=== PATIENT | female | born 1970 | race American Indian/Alaskan Native ===

== ENCOUNTER 2020-03-01 06:52 | Day surgery (SDC) | payer OTHER ==
[2020-03-01] MEDS ORDERED: SODIUM CHLORIDE 0.9% 1000 ML 1,000 ML IV SCH (07:00)
[2020-03-01] MEDS ORDERED: WATER FOR IRRIG STERILE 250 ML BOTTLE IR ONE (07:38)
[2020-03-01] MEDS ORDERED: WATER FOR IRRIG STERILE 1,000 ML BOTTLE ONE (07:39)
--- NOTE | 2020-03-01 07:58 | Anesthesia Consultation ---
Anesthesia Consult and Med Hx Date of service: 03/01/20 - Airway Anesthetic Teeth Evaluation: Good ROM Head & Neck: Adequate Mental/Hyoid Distance: Adequate Mallampati Class: Class I Intubation Access Assessment: Good - Pulmonary Exam CTA: Yes - Pre-Operative Health Status ASA Pre-Surgery Classification: ASA2 Proposed Anesthetic Plan: MAC - Pulmonary Hx Smoking: Yes (Cigars) Hx Respiratory Symptoms: No COPD: No Hx Sleep Apnea: No - Cardiovascular System Hx Hypertension: Yes Hx Pacemaker: No Hx Peripheral Vascular Disease: No - Central Nervous System Hx Neuromuscular Disorder: Yes (Hx. of cerebral aneurysm.) Hx Seizures: No CVA: No Hx Psychiatric Problems: No - Gastrointestinal Hx Ulcer: No Hx Gastroesophageal Reflux Disease: No - Endocrine Hx Renal Disease: No Hx Liver Disease: No Hx Insulin Dependent Diabetes: No Hx Non-Insulin Dependent Diabetes: No Hx Thyroid Disease: No - Hematic Hx Anemia: No - Other Systems Hx Alcohol Use: Yes (Wine occasinally) Hx Substance Use: No Hx Obesity: No - Additional Comments Anesthesia Medical History Comments: Patient denied previous anesthesia complications
--- NOTE | 2020-03-01 07:59 | Anesthesia Day of Surgery ---
Anesthesia Day of Surgery - Day of Surgery Patient Examined: Yes Patient H&P Reviewed: Yes Patient is NPO: Yes Beta Blockers: No Cardiac Clearance: No Pulmonary Clearance: No
--- NOTE | 2020-03-01 09:06 | Procedure Note ---
Date of procedure: 03/01/20 Pre-op diagnosis: Colon Polyp Screening Post-op diagnosis: other (Solitary,Cecal Polyp/No diverticuli/Mild Melanosis Coli/ Minor,Internal Hemorrhoid) Procedure: Colonoscopy with cold Snare Polypectomy Anesthesia: MAC Surgeon: GUILLERMO CRUMP Estimated blood loss: minimal Pathology: list Specimen disposition: to lab Condition: stable Disposition: same day (Avoid aspirin and NSAID for 5 days; otherwise resume home medication and follow up in 1 to 2 weeks ([phone]).)
--- NOTE | 2020-03-01 09:21 | Operative Report ---
PROCEDURE: Colonoscopy with cold snare polypectomy. INDICATIONS: This is a 50-year-old -[place] female who had a colonoscopy done as part of colon polyp screening. She gives no family history of colon cancer. DESCRIPTION OF PROCEDURE: The procedure was done after getting informed consent with MAC anesthesia. Initial rectal exam was unremarkable. Instrument was passed through the rectum onto the cecum, which was identified with ileocecal valve and appendiceal orifice. The cecum was also viewed on the retroverted view as a 10 mm sessile polyp was noted in the cecum. This was removed by cold snare polypectomy and retrieved with a cold biopsy forceps. The remaining part of the proximal colon, the transverse colon, descending colon, and sigmoid showed normal mucosa other than for the presence of some melanosis coli and the rectum showed some minor internal hemorrhoid on the retroverted view. There was minimal bleeding associated with the polypectomy. No complications associated with the procedure. ASSESSMENT: Colon polyp screening, solitary cecal polyp removed by cold snare polypectomy, minor internal hemorrhoid and mild melanosis coli. PLAN: To encourage the patient to avoid aspirin and aspirin-related products for the next 4-5 days. Resume home medication and follow up in the office in 1-2 weeks' time. Procedure was done in the GI lab with assistance of the GI lab team, which included ARETHA Lima; Tal aaron and with assistance of anesthesia. JOB# [id number] BHARATH/MARISSA
[2020-03-01 09:44] VITALS: BP 146/75
--- NOTE | 2020-03-01 12:25 | Post Anesthesia Evaluation ---
- Post Anesthesia Evaluation Patient Participated: Yes Airway Patent: Yes Stable Respiratory Function: Yes Nausea/Vomiting: No Temp > 96.8F: Yes Pain Manageable: Yes Adequeate Hydration: Yes Anesthesia Complications: No Block Receding Appropriately: Not Applicable Patient on Ventilator: No
== END 2020-03-01 10:20 | disposition home or self-care (01) ==
LOC: GIO 06:52
DX: Z12.11 Encounter for screening for malignant neoplasm of colon (principal); K64.8 Other hemorrhoids; K63.89 Other specified diseases of intestine; D12.0 Benign neoplasm of cecum; I10 Essential (primary) hypertension; F17.210 Nicotine dependence, cigarettes, uncomplicated; Z79.899 Other long term (current) drug therapy; Z88.2 Allergy status to sulfonamides; Z72.89 Other problems related to lifestyle
CPT/HCPCS: 45385; 88305; J7030